=== PATIENT | male | born 1980 | race Caucasian/White ===

== ENCOUNTER 2017-02-26 21:34 | Emergency (ER) | payer OTHER ==
[2017-02-26 21:43] VITALS: BP 160/78; PULSE 80; O2SAT 99
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
[2017-02-26] MEDS ORDERED: NORCO 5/325 MG ONE (22:35)
[2017-02-26] MEDS ORDERED: NORCO 5/325 MG PO ONE (22:37)
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
== END 2017-02-26 22:39 | disposition home or self-care (01) ==
LOC: ED 21:34
DX: S66.911A Strain of unspecified muscle, fascia and tendon at wrist and hand level, right hand, initial encounter (principal); M25.531 Pain in right wrist; V49.49XA Driver injured in collision with other motor vehicles in traffic accident, initial encounter
CPT/HCPCS: 73130; 99283; L3908; A9270-GY